=== PATIENT | male | born 1960 | race Caucasian/White ===

== ENCOUNTER 2018-08-06 18:11 | Inpatient (IN) | payer OTHER ==
[~2018-08-06] VITALS: Ht 182.9 cm; Wt 106.6 kg
--- NOTE | ~2018-08-06 | CON ---
[address] [address] CONSULTATION Name: JUAN JOSETRISTAN BOURNE Room: [address] IN M.R.#: [id number] Admission: 08/06/18 Attend Phys: Mali Nolan Discharge: Date of : 64 Report #: [id number] THIS REPORT FOR: //name// CC: Tarah Murillo DATE OF SERVICE: 08/09/2018 INFECTIOUS DISEASE CONSULTATION ATTENDING PHYSICIAN: Jeanie Cisse M.D. REASON FOR EVALUATION: Febrile illness, suspected pyelonephritis. HISTORY OF PRESENT ILLNESS: Chart reviewed, the patient examined. This is a 58-year-old gentleman without significant medical history, who presented to the Emergency Room with complaints of fevers which have been high grade. He had been ill over the course of the last 10-14 days and noted some dark cloudy urine, although absence of abdominal or side pain. He did experience what appeared to be cyclical chills, fevers and sweats. On evaluation, he was found to be leukocytotic. There was moderate pyuria. Urine cultures are in progress, nothing grown thus far. He did take one single dose of ciprofloxacin. Imaging raised a question of possible recently passed left-sided kidney stone with some perinephric stranding. Chest x-ray was otherwise unremarkable. He generally has improved. Empirically placed on ceftriaxone. On questioning, he denies any particular exposure history. 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 He has not had any recent travel. He had been to [place] a year ago. He does have several animals, [place] He is not aware of any arthropod exposure and does eat sushi. Generally, at this point, he feels better. ALLERGIES: None known. MEDICATIONS: Current medicines include enoxaparin, ceftriaxone, fentanyl as needed, acetaminophen and ondansetron. PAST MEDICAL HISTORY: History of tonsillectomy and adenoidectomy. SOCIAL HISTORY: Nonsmoker. No ethanol or illicit drug use. FAMILY HISTORY: Noncontributory. REVIEW OF SYSTEMS: He denies any significant pulmonary complaints. No head and neck issues. He has had recent dental work, although no dental pain. No sinus congestion. No headache or meningismus. [place] [address] CONSULTATION Name: TRISTAN INGRAM Room: [address]#: [id number] Admission: 08/06/18 Attend Phys: Mali Nolan Discharge: Date of : 64 Report #: [id number] PHYSICAL EXAMINATION: GENERAL: He is alert, cooperative and appropriate. He is not encephalopathic. He is in mild distress. VITAL SIGNS: Temperature 98.4 with a T-max overnight of 100.7, pulse 71, respirations 18 and blood pressure 151/100. SKIN: Warm, dry. No rashes. HEENT: Normocephalic. Extraocular muscles intact. No evidence of significant dental inflammation or lesions. NECK: Supple. LUNGS: Generally clear to auscultation. HEART: Regular. I do not appreciate a murmur. ABDOMEN: Soft, mildly distended. There are no peritoneal signs. Really, no tenderness. GENITOURINARY: Deferred. RECTAL: Deferred. LABORATORY DATA: Electrolytes: Sodium 142, potassium 3.6, chloride 107, bicarb 25, anion gap of 10, BUN and creatinine 13 and 1.0 and glucose of 112. AST of 60, ALT of 146. Albumin of 2.6. CBC: White count of 5.8, H and H 12.4 and 36.8 and platelets of 308,000. Acute hepatitis panel was negative. Urine culture negative thus far. Sed rate of 88. CPK 44. PSA of 3.8. Blood cultures sterile thus far. Uric acid 4.2. Influenza antigen was negative. CT abdomen and pelvis as described above, stranding around the left kidney, mild dilatation of the pelvis and collecting system. Urinalysis, 6-15 white cells and 10-30 bacteria. Lactic acid initially was 0.8. Chest x-ray, no acute process. ASSESSMENT AND PLAN: Febrile illness with possible history of pyelonephritis, although he has been asymptomatic. Clinically, he has improved over the course of the hospitalization. Noted plans for abdominal ultrasound and I think it is reasonable. He does have mildly elevated hepatic transaminases. As far as exposure history, certainly, he could have had environmental exposures. If he would worsen, we would likely add doxycycline to exclude atypical process, including a vector borne. We will await culture results. Continue the ceftriaxone for now. I did discuss in detail with his family. By: [id number] Verduzco MD /nt
[2018-08-06 18:25] VITALS: BP 147/81
[2018-08-06 19:10] LABS: HEMATOCRIT 39.8 % (42.0-52.0); HEMOGLOBIN 13.8 gm/dL (14.0-18.0); MCH 29.6 pg (26.0-34.0); MCHC 34.8 g/dL (28.0-37.0); MCV 85.2 fL (80.0-100.0); NUCLEATED RBCS 0 /100WBC; PLATELET COUNT* 293 thou/uL (150-400); RBC 4.67 mil/uL (4.50-6.00); RDW-CV 12.7 % (10.5-14.5); WBC 13.7 thou/uL (4.0-11.0)
[2018-08-06 19:18] LABS: ALBUMIN 3.1 g/dL (3.4-5.0); CALCIUM 8.5 mg/dL (8.5-10.1); CREATININE 1.4 mg/dL (0.6-1.3); POTASSIUM 3.6 mmol/L (3.5-5.1); TOTAL BILIRUBIN 1.2 mg/dL (<0.1-1.0); TOTAL PROTEIN 7.8 g/dL (6.4-8.2)
[2018-08-06 19:32] LABS: ABSOLUTE NEUTROPHILS 11.8 thou/uL (1.6-8.1); PLATELET ESTIMATE ADEQUATE
[2018-08-06 21:02] LABS: URINE BILIRUBIN NEGATIVE (Negative); URINE BLOOD 2+ (Negative); URINE CLARITY CLEAR; URINE COLOR YELLOW; URINE GLUCOSE-RANDOM NEGATIVE (Negative); URINE KETONES TRACE (Negative); URINE NITRITE-REFLEX NEGATIVE (Negative); URINE PROTEIN NEGATIVE (Negative); URINE SPECIFIC GRAVITY <= 1.005 (1.005-1.030); URINE UROBILINOGEN 0.2 E.U./dl (0.2-1.0)
[2018-08-06 21:06] LABS: URINE LEUKOCYTES-REFLEX 3+ (Negative)
[2018-08-06 21:08] LABS: CASTS None Seen /LPF (None Seen); CRYSTALS None Seen /LPF (None Seen); SQUAMOUS 0-3 Few /LPF (0-3); URINE RBC 0-2 Rare /HPF (0-2); URINE WBC-REFLEX 6-15 Few /HPF (0-5)
--- NOTE | 2018-08-06 21:47 | NUR ---
DR LITTLE RETURNED PAGE REGARDING PATIENT INFORMATION PROVIDED
[2018-08-06 23:28] VITALS: BP 124/81
[2018-08-07 03:16] VITALS: BP 127/79
[2018-08-07 06:20] VITALS: BP 140/83
[2018-08-07 08:14] LABS: INFLUENZA A ANTIGEN None Detected (None Detect); INFLUENZA B ANTIGEN None Detected (None Detect)
[2018-08-07 09:23] VITALS: BP 151/78
[2018-08-07 09:39] VITALS: BP 123/84
--- NOTE | 2018-08-07 10:12 | NUR ---
PATIENT CAME TO THE FLOOR FROM THE ER IN STABLE CONDITION VIA BED. NO FEVER AT THIS TIME, PATIENT IS FEELING BETTER. ROOM ORIENTATION AND ADMISSION ASSESSMENT DONE. QUESTIONS ANSERED FOR PATITENT AND FAMILY. CALL LIGHT IS IN REACH WILL CONTINUE TO MONITOR.
[2018-08-07 17:05] VITALS: BP 148/85
--- NOTE | 2018-08-07 17:05 | NUR ---
PATIENT IS ALERT AND ORIENTED TODAY. NO COMPLAINTS OF ANY KIND AT THIS TIME. PATIENT IS ABLE TO ICE CHIPS PER SURGERY BUT OTHERWISE NOTNING BY MOUTH DUE TO BOWEL OBSTRUCTION. NO NUASEA, VOMITING OR PAIN. VITAL SIGNS ARE STABLE ON ROOM AIR. PICC LINE PLACED TODAY AND WORKS WELL, WILL BE GETTING TPN. PATIENT IS UP AD GRACIE IN ROOM, CALLS FOR HELP IF NEEDED. CALL LIGHT IS IN REACH, WILL CONTINUE TO MONITOR.
--- NOTE | 2018-08-07 17:12 | NUR ---
PATIENT IS ALERT AND ORIENTED TODAY, VERY PLEASANT. UP AD GRACIE IN ROOM. NO COMPLAINTS OF PAIN TODAY, TEMPATURE MIS THIS AFTERNOON, TYLENOL GIVEN WAITING TO RECHECK TEMPATURE. REGULAR DIET AND TOLERATING WELL. CALL LIGHT IS IN REACH, WILL CONTINUE TO MONITOR.
[2018-08-07 23:19] VITALS: BP 150/98
--- NOTE | 2018-08-08 04:02 | NUR ---
ASSUMED CARE FROM PREVIOUS SHIFT RESTED IN BED MOST OF SHIFT WITH AT BEDSIDE, TYLENOL GIVEN PO FOR C/O HEADACHE, VOIDING CLEAR YELLOW URINE. RESTED WELL THROUHGOUT HOURLY ROUNDS NO CHANGE IN ASSESSMENT NOTED.
[2018-08-08 04:16] LABS: HEMATOCRIT 34.5 % (42.0-52.0); HEMOGLOBIN 12.1 gm/dL (14.0-18.0); MCH 30.1 pg (26.0-34.0); MCV 85.8 fL (80.0-100.0); MPV 7.5 fl. (7.2-11.1); RBC 4.02 mil/uL (4.50-6.00); RDW-CV 12.7 % (10.5-14.5); WBC 7.5 thou/uL (4.0-11.0)
[2018-08-08 04:28] LABS: CHOLESTEROL 140 mg/dL (<200); HDL CHOLESTEROL 25 mg/dL (>40); LDL CHOLESTEROL 99 mg/dL (<100); TC:HDL 5.6 Ratio (Not establshd); TRIGLYCERIDE 83 mg/dL (<150); URIC ACID* 4.2 mg/dL (2.6-7.2); VLDL 17 mg/dL (<40)
[2018-08-08 04:42] LABS: ALBUMIN 2.5 g/dL (3.4-5.0); POTASSIUM 3.5 mmol/L (3.5-5.1); TOTAL BILIRUBIN 0.5 mg/dL (<0.1-1.0); TOTAL PROTEIN 6.6 g/dL (6.4-8.2)
[2018-08-08 04:53] LABS: SERUM ASSESSMENT CLEAR
[2018-08-08 08:45] VITALS: BP 146/94
--- NOTE | 2018-08-08 13:19 | NUR ---
PATIENT IS ALERT AND ORIENTED TODAY, VITAL SIGNS STABLE ON ROOM AIR. NO COMPLAINTS OF ANY KIND PATIENT SAYS "I AM MUCH BETTER" APPETITE IS GOOD. NO FEVER TODAY. UP AD GRACIE IN ROOM. CALL LIGHT IS IN REACH, WILL CONTINUE TO MONITOR.
--- NOTE | 2018-08-08 14:30 | NUR ---
ASSUMED CARE OF PT FOR THIS SHIFT. AGREE WITH PREVIOUS DOCUMENTATION. WILL CONTINUE TO MONITOR.
[2018-08-08 15:46] VITALS: BP 140/83
[2018-08-08 20:20] VITALS: BP 151/100
[2018-08-09 02:10] LABS: HEPATITIS B SURFACE AG Negative (Negative)
--- NOTE | 2018-08-09 05:59 | NUR ---
PT A&O X 4. HIGHEST RECORDED TEMPERATURE THIS SHIFT WAS 100.7. TYLENOL GIVEN FOR PAIN AND TEMP AT PT REQUEST. NO NAUSEA OR VOMITING. NPO AT MIDNIGHT FOR PROCEDURE TODAY. WILL CONTINUE TO MONITOR.
[2018-08-09 08:20] VITALS: BP 147/104
[2018-08-09 09:38] LABS: ABSOLUTE EOSINOPHILS 0.1 thou/uL (0.0-0.7); ABSOLUTE LYMPHOCYTES 1.2 thou/uL (0.8-5.3); ABSOLUTE MONOCYTES 0.5 thou/uL (0.0-1.2); ABSOLUTE NEUTROPHILS 3.9 thou/uL (1.6-8.1); BASOPHILS 0.6 %; EOSINOPHILS 1.4 %; HEMATOCRIT 36.8 % (42.0-52.0); HEMOGLOBIN 12.4 gm/dL (14.0-18.0); LYMPHOCYTES 21.4 %; MCH 29.6 pg (26.0-34.0); MCHC 33.8 g/dL (28.0-37.0); MCV 87.4 fL (80.0-100.0); MONOCYTES 8.8 %; MPV 7.9 fl. (7.2-11.1); NUCLEATED RBCS 0 /100WBC; PLATELET COUNT* 308 thou/uL (150-400); POLYS 67.8 %; RBC 4.21 mil/uL (4.50-6.00); RDW-CV 12.4 % (10.5-14.5); WBC 5.8 thou/uL (4.0-11.0)
[2018-08-09 09:50] LABS: ALBUMIN 2.6 g/dL (3.4-5.0); POTASSIUM 3.6 mmol/L (3.5-5.1); TOTAL BILIRUBIN 0.3 mg/dL (<0.1-1.0); TOTAL PROTEIN 6.2 g/dL (6.4-8.2)
[2018-08-09 12:03] LABS: URINE BILIRUBIN NEGATIVE (Negative); URINE BLOOD TRACE (Negative); URINE CLARITY CLEAR; URINE COLOR YELLOW; URINE GLUCOSE-RANDOM NEGATIVE (Negative); URINE KETONES TRACE (Negative); URINE LEUKOCYTES NEGATIVE (Negative); URINE NITRITE NEGATIVE (Negative); URINE PROTEIN NEGATIVE (Negative)
--- NOTE | 2018-08-09 14:30 | NUR ---
PT.ALERT AND ORIENTED. STATED HE LIVES WITH S.O.IN A HOUSE. 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 NO DME OR HH HX. HE DOES NOT FEEL HE WILL HAVE ANY DISCHARGE NEEDS. CM TO BE AVAILABLE.
[2018-08-09 16:00] VITALS: BP 147/101
--- NOTE | 2018-08-09 16:57 | NUR ---
PT REMAINED ALERT AND ORIENTED. PT DENIED ANY PAIN OR N/V. AFEBRILE THIS SHIFT. POSSIBLE DC TOMORROW. VESICLES NOTED ON ANUS. DOCTOR NOTIFIED AND SAW VESICLES. WILL MONITOR. FALL RISK PRECAUTIONS IN PLACE. HOURLY ROUNDING COMPLETED. WILL CONTINUE TO MONITOR.
[2018-08-09 20:45] VITALS: BP 163/101
[2018-08-10 04:23] LABS: HEMATOCRIT 36.2 % (42.0-52.0); HEMOGLOBIN 12.4 gm/dL (14.0-18.0); MCH 29.6 pg (26.0-34.0); MCHC 34.1 g/dL (28.0-37.0); MCV 86.8 fL (80.0-100.0); MPV 7.1 fl. (7.2-11.1); RBC 4.17 mil/uL (4.50-6.00); RDW-CV 12.4 % (10.5-14.5); WBC 6.8 thou/uL (4.0-11.0)
[2018-08-10 04:58] LABS: ALBUMIN 2.6 g/dL (3.4-5.0); CALCIUM 8.5 mg/dL (8.5-10.1); POTASSIUM 3.5 mmol/L (3.5-5.1); TOTAL BILIRUBIN 0.3 mg/dL (<0.1-1.0); TOTAL PROTEIN 6.9 g/dL (6.4-8.2)
--- NOTE | 2018-08-10 05:37 | NUR ---
PT REMAINED ALERT AND ORIENTED. VITALS, SpO2 STABLE RA. AFIBRILE. NO PAIN, NAUSEA OR VOMITING THIS SHIFT. MEDS, FLUID GIVEN ORDERED. WILL CONTINUE TO MONITOR.
[2018-08-10 06:05] VITALS: BP 153/93
[2018-08-10 07:40] VITALS: BP 148/96
[2018-08-10 09:35] VITALS: BP 148/96
[2018-08-10] MEDS ORDERED: CEFDINIR300 MG PO (09:35)
[2018-08-10 11:08] VITALS: BP 148/96
--- NOTE | 2018-08-10 11:08 | NUR ---
PT GIVEN DISCHARGE INFORMATION, CARE NOTES, AND PRESCRIPTIONS. IV REMOVED. PT BELONINGS GATHERED. PT DENIED ANY FURHTER QUESTIONS OR CONCERNS. FALL RISK PRECAUTIONS IN PLACE. HOURLY ROUNDING COMPLETED. PT LEFT AMBULATORY WITH NURSING STAFF AND SPOUSE TO CARE TO HOME.
[2018-08-10 14:08] LABS: IgA 230 mg/dL (90-386); IgG 1000 mg/dL (700-1600); IgM 39 mg/dL (20-172)
[2018-08-12 18:08] LABS: GLOBULIN TOTAL 3.1 g/dL (2.2-3.9); M-SPIKE Not Observed g/dL (Not Observed)
== END 2018-08-10 11:09 | disposition home or self-care (01) | DRG 871 ==
LOC: M.ERS 18:11 → M.TBA-ER 21:04 → M.ORTHSURG 21:04
PROVIDERS: Internal Medicine; Physician Assistant; ADMIT Internal Medicine
DX: A41.9 Sepsis, unspecified organism (principal); N17.0 Acute kidney failure with tubular necrosis; B17.9 Acute viral hepatitis, unspecified; N10 Acute pyelonephritis; K62.9 Disease of anus and rectum, unspecified; I10 Essential (primary) hypertension; D64.9 Anemia, unspecified; E88.09 Other disorders of plasma-protein metabolism, not elsewhere classified; K76.0 Fatty (change of) liver, not elsewhere classified; Z79.2 Long term (current) use of antibiotics; Z79.899 Other long term (current) drug therapy; Z82.49 Family history of ischemic heart disease and other diseases of the circulatory system; Z83.3 Family history of diabetes mellitus

== ENCOUNTER 2020-07-09 10:44 | Inpatient (IN) | payer OTHER ==
[2020-07-09] VITALS (16 sets, daily range): BP systolic 112–197; BP diastolic 54–107
[~2020-07-09] VITALS: Ht 182.9 cm; Wt 107.4 kg
[~2020-07-09 10:44] MED LIST: CEFDINIR300 MG PO
[2020-07-09 11:06] LABS: ABSOLUTE EOSINOPHILS 0.2 thou/uL (0.0-0.7); ABSOLUTE LYMPHOCYTES 1.5 thou/uL (0.8-5.3); ABSOLUTE MONOCYTES 0.4 thou/uL (0.0-1.2); ABSOLUTE NEUTROPHILS 3.8 thou/uL (1.6-8.1); BASOPHILS 0.8 %; EOSINOPHILS 3.2 %; HEMATOCRIT 44.4 % (42.0-52.0); LYMPHOCYTES 25.2 %; MCH 30.2 pg (26.0-34.0); MCHC 33.7 g/dL (28.0-37.0); MCV 89.8 fL (80.0-100.0); MPV 7.5 fl. (7.2-11.1); NUCLEATED RBCS 0 /100WBC; PLATELET COUNT* 241 thou/uL (150-400); POLYS 63.8 %; RBC 4.95 mil/uL (4.50-6.00); RDW-CV 13.2 % (10.5-14.5)
[2020-07-09 11:16] LABS: CALCIUM 9.1 mg/dL (8.5-10.1); CREATININE 1.3 mg/dL (0.6-1.3)
[2020-07-09 11:26] LABS: INR 0.9
[2020-07-09 11:30] LABS: ALBUMIN 4.1 g/dL (3.4-5.0); CK-MB MASS 0.9 ng/mL (<0.5-3.6); MAGNESIUM 2.3 mg/dL (1.8-2.4); TOTAL BILIRUBIN 0.3 mg/dL (<0.1-1.0); TOTAL PROTEIN 8.5 g/dL (6.4-8.2)
--- NOTE | 2020-07-09 15:11 | EKG ---
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
[2020-07-10 00:50] VITALS: BP 84/49
[2020-07-10 01:39] VITALS: BP 89/55
[2020-07-10 03:58] LABS: HEMOGLOBIN 13.2 gm/dL (14.0-18.0); MCH 30.1 pg (26.0-34.0); MCHC 33.9 g/dL (28.0-37.0); MCV 88.6 fL (80.0-100.0); MPV 7.4 fl. (7.2-11.1); RBC 4.4 mil/uL (4.50-6.00); RDW-CV 13.3 % (10.5-14.5); WBC 6.7 thou/uL (4.0-11.0)
[2020-07-10 04:17] LABS: ALBUMIN 3.3 g/dL (3.4-5.0); ALKALINE PHOSPHATASE 57 U/L (46-116); ANION GAP 10 mmol/L (7-16); BUN 22 mg/dL (7-18); CALCIUM 8.6 mg/dL (8.5-10.1); CHLORIDE 107 mmol/L (98-107); CHOLESTEROL 171 mg/dL (<200); CO2 26 mmol/L (21-32); CREATININE 1.3 mg/dL (0.6-1.3); GLUCOSE 103 mg/dL (70-99); HDL CHOLESTEROL 37 mg/dL (>40); LDL CHOLESTEROL 119 mg/dL (<100); MAGNESIUM 2.1 mg/dL (1.8-2.4); POTASSIUM 4.1 mmol/L (3.5-5.1); SGOT 14 U/L (15-37); SGPT 22 U/L (30-65); SODIUM 143 mmol/L (136-145); TC:HDL 4.6 Ratio (Not establshd); TOTAL BILIRUBIN 0.7 mg/dL (<0.1-1.0); TOTAL PROTEIN 6.7 g/dL (6.4-8.2); TRIGLYCERIDE 75 mg/dL (<150); VLDL 15 mg/dL (<40)
[2020-07-10 04:18] LABS: SERUM ASSESSMENT Clear
[2020-07-10 04:25] LABS: TROPONIN-I LEVEL 0.76 ng/mL (<0.06)
[2020-07-10 05:07] VITALS: BP 91/56
[2020-07-10 08:00] VITALS: BP 107/69
[2020-07-10] MEDS ORDERED: CARVEDILOL3.125 MG PO (09:36)
[2020-07-10] MEDS ORDERED: BAYER CHEWABLE81 MG PO (09:36)
[2020-07-10] MEDS ORDERED: EFFIENT10 MG PO (09:36)
[2020-07-10] MEDS ORDERED: QUINU5 PD PO (09:36)
[2020-07-10] MEDS ORDERED: LIPITOR 40 MG T40 M1 PO (09:36)
[2020-07-10 10:46] VITALS: BP 107/69
--- NOTE | 2020-07-10 11:07 | CARD ---
[address] [address] CARDIAC CATH REPORT Name: TRISTAN INGRAM Room: [address] IN M.R.#: [id number] Admission: 07/09/20 Attend Phys: Tammie Delgado MD Discharge: 07/10/20 Date of : 64 Report #: [id number] THIS REPORT FOR: cc: Tarah Shetty Maggie M. DO ~ Helio Jones MD [facility] APPROVED REPORT Study performed: 07/09/2020 13:13:32 Patient Details Patient Status: ED Room #: The patient is a 60 year-old male Event Personnel Chandu Rabago RTR Monitor, Zuleyka Mcclelland RTR Scrub, Indu Lamar RN RN, Helio Jones Auger Operator Procedures Performed Left Heart Cath w/or w/o Coronaries [id number] [facility] w/wo Plasty Single CIRC [id number] Hemostasis with Hemoband Indication Non-STEMI , Dyspnea, Atypical chest pain Risk Factors Arterial Hypertension, Family History, Hypercholesterolemia Admission/Lab Medications/Medications given during procedure Glycoprotein IllbIlla Inhibitors, Heparin Unfract., Midazolam (Versed) IV 2 mg, Fentanyl IV 25 mcg, Lidocaine Subcut 5 ml, Nitroglycerin IA 200 mcg, Verapamil IV 2.5 mg, Heparin IV 5000 units, Aggrastat Unknown 10.2 ml, Midazolam (Versed) IV 1 mg, Effient PO 60 mg, Hydralazine (Apresoline) IV 10 mg Procedure Narrative The patient was brought urgently to the Cardiac Catheterization Laboratory and was prepped and draped in a sterile manner. The right wrist was infiltrated with 2% Lidocaine subcutaneous anesthesia. A Slender Glidesheath sheath was inserted into the right radial artery. Coronary angiography was performed using coronary diagnostic catheters. The right coronary system was accessed [place] [address] CARDIAC CATH REPORT Name: TRISTAN INGRAM Room: [address] IN .R.#: [id number] Admission: 07/09/20 Attend Phys: Tammie Delgado MD Discharge: 07/10/20 Date of : 64 Report #: [id number] a Diagnostic JR4 6Fr catheter. The left coronary system was accessed and visualized with a Diagnostic JL4 6Fr catheter. The left ventricle was accessed and visualized with a Diagnostic Pigtail 6Fr catheter. Left ventricular/Aortic Valve gradient assessed via catheter pullback. Left ventriculogram was performed in WISE projection. Closure device was deployed with a 6 Fr vascband. The patient tolerated the procedure well and there were no complications associated with the procedure. There was no hematoma. Intraoperative Conscious Sedation Sedation start time: 1347 Case end Time: 1430 Fentanyl 50 mcg Versed 3 mg Fluoro Time: 6.6 minutes Dose: DAP 95978 cGycm2 1529.85 mGy Contrast Type and Amount: Visipaque 200 ml Coronary Angiography The patient's coronary anatomy is right dominant. Diagnostic Cath Left Main 30% distal stenosis LAD chronically occluded proximally and filled distally by collaterals from the RCA Circumflex 0% stenosis OM3 large vessel with proximal 90% stenosis Right Coronary 50% proximal stenosis RPLV 60% proximal stenosis Ramus large vessel with 40% proximal stenosis Left Ventriculography The left ventricular ejection fraction is estimated to be 45-50%. Left ventricular wall motion abnormalities are present. There is no mitral insufficiency. mild hypokinesis noted of the distal anterior wall. Hemodynamics The aortic pressure is 120/80 mmHg with a mean of 99 mmHg. The left ventricular pressure is 160/10 mmHg with a mean of mmHg. The left ventricular end diastolic pressure is 14 mmHg. There was no gradient across the aortic valve upon pullback. Pullback from the left ventricle to the aorta revealed no gradient across [place] [address] CARDIAC CATH REPORT Name: TRISTAN INGRAM Room: [address] IN [facility]#: [id number] Admission: 07/09/20 Attend Phys: Tammie Delgado MD Discharge: 07/10/20 Date of : 64 Report #: [id number] PCI Technique Lesion Anticoagulation was achieved with Heparin. bolus of iv aggrastat given Percutaneous coronary intervention was performed on the third obtuse marginal branch segment. The lesion stenosis prior to intervention was 90% with CAMILLE 3 flow. A 6FR XB 3.5 100CM Guide Catheter was used to engage the Left ostium. A IG: BMW 190cm Interventional Guidewire was used to cross the lesion. BALLOON DILATION A Balloon catheter Euphora SC 2.5x10 was inserted and inflated up to 8.00atm for 13seconds. Repeat angiography revealed the following post-dilatation results: 40% stenosis. Additional Inflation: 16.00atm for 20seconds. STENT DEPLOYMENT A drug-eluting stent Bebeto RX Stent 2.92G22hd was inserted and inflated up to 10.00atm for 13seconds. Repeat angiography revealed the following post-stent deployment results: 0% stenosis. Additional Inflation: 11.00atm for 14seconds. Additional Inflation: 17.00atm for 9seconds. Final angiography reveals 0 % stenosis with CAMILLE 3 flow. Conclusion 1. chronic occlusion of the LAD that filled distally by retrograde collaterals from the RCA 2. 90% stenosis of the third marginal branch of the circumflex artery. 3. LVEF 45-50% 4. successful placement of a drug eluting stent in the marginal artery. Recommendations Cardiac Rehabilitation Referral Aggressive Medical Therapy Medications Administered Prasugrel <ELECTRONICALLY SIGNED> By: Helio Jones MD, FACC 07/10/20 1107 06 1107Dacheko Jones MD, FACC /INF
--- NOTE | 2020-07-11 11:18 | CON ---
[address] [address] CONSULTATION Name: TRISTAN INGRAM Room: [address] IN M.R.#: [id number] Admission: 07/09/20 Attend Phys: Tammie Delgado MD Discharge: 07/10/20 Date of : 64 Report #: [id number] THIS REPORT FOR: cc: Tarah Shetty Maggie M. DO ~ Helio Jones MD [facility] DATE OF SERVICE: 07/09/2020 CARDIOLOGY CONSULTATION HISTORY OF PRESENT ILLNESS: The patient is a 60-year-old white male who I was asked to see in the Emergency Room today after he complained of chest pain. The patient has no previous history of heart disease. However, the past several weeks, he has had intermittent sharp pain, left side of his chest. Occasionally goes into his right arm. He does get short of breath when he exerts himself. The pain is not related to food. He has had no trauma to his chest. Denied any rash. He has had no bleeding. Denied any fever or cough. He finally came to the hospital today. He was admitted for further evaluation and treatment. He denies any palpitations or syncope. PAST MEDICAL HISTORY: He has had previous surgery on his right arm following a fracture. He has been told his blood pressure was high in the past. Currently on no medications. ALLERGIES: He has no known drug allergies. FAMILY HISTORY: His father had bypass surgery. His mother had stents. SOCIAL HISTORY: He is , lives in [place], [place]. He works [employer]. No smoking. Drinks alcohol on weekends. No illicit drug use. REVIEW OF SYSTEMS: No history of stroke, asthma, liver disease, bleeding, kidney disease, cancer, psychiatric illness. Does wear glasses. PHYSICAL EXAMINATION: GENERAL: Revealed a large male, appeared in no distress. VITAL SIGNS: Blood pressure is 160/100, pulse 60. He is afebrile. HEENT: He was anicteric. Conjunctivae pink. Mucous membranes were moist. NECK: Veins nondistended. No carotid bruits. Neck supple. CHEST: Clear to auscultation. CARDIOVASCULAR: Regular rate and rhythm without murmurs. ABDOMEN: Soft. EXTREMITIES: Had no edema. Posterior tibial pulse 2+ bilaterally. SKIN: [place] [address] CONSULTATION Name: TRISTAN INGRAM Room: [address]#: [id number] Admission: 07/09/20 Attend Phys: Tammie Delgado MD Discharge: 07/10/20 Date of : 64 Report #: [id number] NEUROLOGIC: Nonfocal. RADIOLOGICAL DATA: ECG shows a sinus rhythm with no ST- or T-wave change noted. His workup in the Emergency Room, he had a portable chest x-ray that showed normal heart size, clear lung yeung. LABORATORY DATA: Sodium 140, potassium 4.0, creatinine 1.3. His troponin is 0.24. Previous LDL in 2019 was 99. His white blood cell count of 6.0, hemoglobin 15.0. IMPRESSION AND RECOMMENDATIONS: 1. Chest pain. Atypical for angina. Borderline troponin. Recommend cardiac catheterization. 2. Hypertension. Recommend treatment. <ELECTRONICALLY SIGNED> By: Helio Jones MD, FACC 07/11/20 1118 1207 1253David Constantino Jones MD, FACC /nt
--- NOTE | 2020-07-12 17:27 | EKG ---
[place] [address] ELECTROCARDIOGRAM REPORT Name: TRISTAN INGRAM Room: [address] IN M.R.#: [id number] Admission: 07/09/20 Attend Phys: Tammie Delgado, Discharge: 07/10/20 Date of : 64 Date of Service: 07/09/20 1600 Report #: [id number] THIS REPORT FOR: //name// 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 /EPI
== END 2020-07-10 11:05 | disposition home or self-care (01) | DRG 247 ==
LOC: M.ERS 10:44 → M.TBA-ER 11:48 → M.2W 15:37
PROVIDERS: Family Medicine; ADMIT Internal Medicine; ATTEND Internal Medicine
PROC: 027034Z Dilation of Coronary Artery, One Artery with Drug-eluting Intraluminal Device, Percutaneous Approach (ICD-10-PCS; principal; 2020-07-09)
PROC: 4A023N7 Measurement of Cardiac Sampling and Pressure, Left Heart, Percutaneous Approach (ICD-10-PCS; principal; 2020-07-09)
PROC: B215YZZ Fluoroscopy of Left Heart using Other Contrast (ICD-10-PCS; principal; 2020-07-09)
PROC: B211YZZ Fluoroscopy of Multiple Coronary Arteries using Other Contrast (ICD-10-PCS; principal; 2020-07-09)
DX: I21.4 Non-ST elevation (NSTEMI) myocardial infarction (principal); I10 Essential (primary) hypertension; E78.00 Pure hypercholesterolemia, unspecified; I20.8 Other forms of angina pectoris; Z82.49 Family history of ischemic heart disease and other diseases of the circulatory system; Z79.82 Long term (current) use of aspirin; Z79.899 Other long term (current) drug therapy; Z20.822 Contact with and (suspected) exposure to COVID-19

== ENCOUNTER 2021-04-13 09:39 | Observation (INO) | payer OTHER ==
[2021-04-13] VITALS (15 sets, daily range): BP systolic 137–170; BP diastolic 55–98
[~2021-04-13] VITALS: Ht 182.9 cm; Wt 107.0 kg
--- NOTE | ~2021-04-13 | H ---
[address] [address] HISTORY AND PHYSICAL Name: TRISTAN INGRAM Room: [address] Kelly Garcia#: [id number] Admission: 04/13/21 Attend Phys: Helio Jones MD, F Discharge: 04/14/21 Date of : 64 Report #: [id number] THIS REPORT FOR: cc: Tarah Shetty Maggie M. DO [facility],Medical Records Staff ~ Please refer to the History and Physical performed in the physician's office. By: 0649Medical Records Staff MARY /RONY
[~2021-04-13 09:39] MED LIST changes: +ACCUPRIL5 MG PO; +ASA81BEC PO; +BAYER CHEWABLE81 MG PO; +CARVEDILOL3.125 MG PO; +EFFIENT10 MG PO; +LIPITOR 20 MG T20 M1 PO; +LIPITOR 40 MG T40 M1 PO; +QUINU5 PD PO
[2021-04-13 10:22] LABS: HEMATOCRIT 40.7 % (42.0-52.0); HEMOGLOBIN 13.8 gm/dL (14.0-18.0); MCH 29.7 pg (26.0-34.0); MCHC 33.9 g/dL (28.0-37.0); MCV 87.5 fL (80.0-100.0); MPV 7.4 fl. (7.2-11.1); RBC 4.65 mil/uL (4.50-6.00); WBC 5.5 thou/uL (4.0-11.0)
--- NOTE | 2021-04-13 10:30 | EKG ---
[place] [address] ELECTROCARDIOGRAM REPORT Name: TRISTAN INGRAM Room: [facility]#: [id number] Admission: 04/13/21 Attend Phys: Helio Jones MD Discharge: Date of : 64 Date of Service: 04/13/21 1023 Report #: [id number] THIS REPORT FOR: //name// [facility] Test Date: 2021-04-13 Test Time: 10:23:50 Pat Name: TRISTAN INGRAM Department: Room: Gender: Chief Learning Officer: : 1960 Requested By: Helio Jones Order Number: [id number] Reading MD: Helio Jones Measurements Intervals [place] Rate: 52 P: 48 [place]: 146 QRS: 14 QRSD: 114 T: 31 QT: 467 QTc: 435 Interpretive Statements Sinus bradycardia Borderline intraventricular conduction delay Compared to ECG 07/09/2020 16:00:40 No significant changes Electronically Signed On 04-13-2021 10:30:13 ROOFING TILE SORTER by Helio Jones [email or web address] <ELECTRONICALLY SIGNED> By: Helio Jones MD, [facility] 04/13/21 1030 1023 1023 Helio Jones MD, [facility] /EPI
[2021-04-13 11:07] LABS: APTT 30.5 Seconds (25.0-31.3); PROTIME 10.4 Seconds (9.20-11.50)
[2021-04-13 11:35] LABS: ANION GAP 9 mmol/L (7-16); BUN 19 mg/dL (7-18); CALCIUM 8.6 mg/dL (8.5-10.1); CHLORIDE 107 mmol/L (98-107); CO2 26 mmol/L (21-32); CREATININE 1.1 mg/dL (0.6-1.3); GLUCOSE 113 mg/dL (70-99); POTASSIUM 4.2 mmol/L (3.5-5.1); SODIUM 142 mmol/L (136-145)
[2021-04-13 11:39] LABS: ALBUMIN 3.9 g/dL (3.4-5.0); ALKALINE PHOSPHATASE 65 U/L (46-116); SGOT 15 U/L (15-37); SGPT 25 U/L (30-65); TOTAL BILIRUBIN 0.6 mg/dL (<0.1-1.0); TOTAL PROTEIN 7.4 g/dL (6.4-8.2)
[2021-04-13 16:42] LABS: CHOLESTEROL 131 mg/dL (<200); HDL CHOLESTEROL 48 mg/dL (>40); LDL CHOLESTEROL 74 mg/dL (<100); TC:HDL 2.7 Ratio (Not establshd); TRIGLYCERIDE 46 mg/dL (<150); VLDL 9 mg/dL (<40)
[2021-04-13 16:50] LABS: SERUM ASSESSMENT Clear
--- NOTE | 2021-04-13 17:14 | EKG ---
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: : 1960 Requested By: Helio Jones Order Number: [id number] Иван MD: Helio Jones Measurements Intervals [place] Rate: 51 P: 34 [place]: 146 QRS: 16 QRSD: 117 T: 35 QT: 468 QTc: 432 Interpretive Statements Sinus bradycardia Nonspecific intraventricular conduction delay Compared to ECG 04/13/2021 10:23:50 no change Electronically Signed On 04-13-2021 17:14:13 GOLF BALL TRIMMER by Helio Jones [email or web address] <ELECTRONICALLY SIGNED> By: Helio Jones MD, [facility] 04/13/21 1714 1551 1551 Helio Jones MD, [facility] /EPI
[2021-04-13] MEDS ORDERED: NITROGLYCERIN0.3 M1 SUBLING (18:06)
--- NOTE | 2021-04-13 19:04 | NUR ---
PT ADMITTED TO ROOM 211 VIA BED FROM RN TELEPHONIC AT APPROXIMATELY 1800. ADMISSION ASSESSMENT AND HISTORY CHARTED. HOME MEDICATIONS RECONCILED. PT ORIENTED TO ROOM AND CALL LIGHT. PT AT BEDSIDE AND UPDATED ON CURRENT PLAN OF CARE. POST CARDIAC CATH ASSESSMENT AND VITALS CHARTED. MEDS PER MAR. CALL LIGHT WITHIN REACH. WILL CONTINUE PLAN OF CARE.
[2021-04-14 05:37] VITALS: BP 130/82
[2021-04-14 06:00] LABS: HEMATOCRIT 38.6 % (42.0-52.0); HEMOGLOBIN 13.1 gm/dL (14.0-18.0); MCH 29.8 pg (26.0-34.0); MCV 87.9 fL (80.0-100.0); MPV 7.6 fl. (7.2-11.1); RBC 4.39 mil/uL (4.50-6.00); WBC 6.9 thou/uL (4.0-11.0)
[2021-04-14 06:33] LABS: CALCIUM 8.1 mg/dL (8.5-10.1); POTASSIUM 3.8 mmol/L (3.5-5.1)
[2021-04-14 08:13] VITALS: BP 150/92
--- NOTE | 2021-04-14 10:36 | CARD ---
[address] [address] CARDIAC CATH REPORT Name: TRISTAN INGRAM Room: [address] Kelly M.R.#: [id number] Admission: 04/13/21 Attend Phys: Helio Jones MD, F Discharge: Date of : 64 Report #: [id number] THIS REPORT FOR: cc: Tarah Shetty Maggie M. DO Blick, David R. MD [facility] ~ APPROVED REPORT Study performed: 04/13/2021 10:20:03 Patient Details Patient Status: Out-Patient Room #: The patient is a 61 year-old male Event Personnel Helio Jones Continuous Loft Operator, Indu Lamar RN RN, Chandu Rabago RTR Scrub, Margi Chandra RTR Monitor Procedures Performed Art Access - R femoral artery Left Heart Cath w/or w/o Coronaries BECKI Revasc Chronic Ttl Occl Single LAD Hemostasis w/ Angioseal Indication Chest pain Risk Factors Arterial Hypertension, Hypercholesterolemia, Coronary Artery Disease Previous Procedures/Diagnoses Previous PCI, Previous IA Admission/Lab Medications/Medications given during procedure Platelet Aff. Inhib., Heparin Unfract., Oxygen Nasal cannula 2 l per min, 0.9% Sodium Chloride IV 75 ml per hr, Lidocaine Subcut 5 ml, Lidocaine Subcut 10 ml, Heparin IV 8000 units, Heparin IV 2000 units, Protamine IV 60 mg Procedure Narrative The patient was brought electively to the Cardiac Catheterization Laboratory and was prepped and draped in a sterile manner. The right femoral was infiltrated with 2% Lidocaine subcutaneous anesthesia. IV conscious sedation was used throughout [place] [address] CARDIAC CATH REPORT Name: TRISTAN INGRAM Room: [address] Jose#: [id number] Admission: 04/13/21 Attend Phys: Helio Jones MD, F Discharge: Date of : 64 Report #: [id number] monitoring and was performed in the presence of a registered nurse who was an independent trained observer other than the physician performing the procedure. A [place] 6 FR sheath was inserted into the right femoral artery. Coronary angiography was performed using coronary diagnostic catheters. The right coronary system was accessed and visualized with a Diagnostic catheter. The left coronary system was accessed and visualized with a Diagnostic catheter. Closure device was deployed with a 6 Fr Angioseal STS 6Fr. There was no hematoma. Attempted procedure from the right radial artery. Arterial blood was obtained with the percutaneious needle, however, I was unable to advance wire into the radial artery. It was therefore decided to proceed from the right femoral artery. Intraoperative Conscious Sedation Sedation start time: 11:33 Case end Time: 13:15 Fentanyl 50 mcg Versed 2 mg Fluoro Time: 18.9 minutes Dose: DAP [id number] cGycm2 5272 mGy Contrast Type and Amount: Visipaque 340 mL PCI Technique Lesion Anticoagulation was achieved with Heparin. Patient was preloaded with Effient. Percutaneous coronary intervention was performed on the distal left anterior descending artery segment. The lesion stenosis prior to intervention was 100% with CAMILLE 0 flow. A 6F XB LAD 4.0 Guide Catheter was used to engage the left ostium. A Choice PT Wire 182cm Interventional Guidewire was used to cross the lesion. BALLOON DILATION A Balloon catheter Trek RX 2.5 X 12 was inserted and inflated up to 6.00atm for 34seconds. Repeat angiography revealed the following post-dilatation results: 100% occluded. Additional Inflation: 6.00atm for 270seconds. Additional Inflation: 8.00atm for 240seconds. BMW wire was unalbe to be advanced across the chronic total occlusion. Arteriogram revealed reperfusion of the chronically occluded LAD, but there was flow noted from the distal LAD outside of the artery suggesting a coronary dissection. However, the blood did not seem to enter the pericardium, suggesting instead that the perforation was into the left ventricle. I attempted to advance a coated Biotronic stent to the area of dissection into the distal LAD, but was unable to advance the stent to the area of dissection secondary to diffuse disease in the chronically occluded LAD. I was able to advance a 2.5 x 12 mm PTCA balloon which stopped the flow [place] [address] CARDIAC CATH REPORT Name: TRISTAN INGRAM Room: [address] Kelly MKaiser#: [id number] Admission: 04/13/21 Attend Phys: Helio Jones MD, F Discharge: Date of : 64 Report #: [id number] the balloon was inflated. I then placed 2 2.0 x 12 mm drug eluting stents to the area of dissection, and the patient was give IV protamine to reverse the heparin. After placemnt of 2 drug eluting stents, the flow into the dissection was markedly reduced. In addition, the patient denied chest pain and there was no drop in blook pressure. Stat echo shoed no pericardial effusion. It was deceded to abandon further efforts. STENT DEPLOYMENT A drug-eluting stent Bebeto RX Stent 2.0X12mm was inserted and inflated up to 12.00atm for 36seconds. Repeat angiography revealed the following post-stent deployment results: 100% occlusion. A drug-eluting stent Bebeto RX Stent 2.0 x 12 was inserted and inflated up to 12 PUJA for 83 seconds. POST STENT DEPLOYMENT BALLOON DILATION A Balloon catheter Trek RX 2.5 X 12 was inserted and inflated up to 6.00atm for 95seconds. Additional Inflation: 6.00atm for 100seconds. Final angiography reveals 100 % stenosis with CAMILLE 0 flow. PCI Technique Lesion 2 Percutaneous Coronary Intervention was performed on the mid left anterior descending artery segment. Patient was preloaded with Heparin IV 8000 units. A 6F XB LAD 4.0 Guide Catheter was used to engage the left ostium. A Choice PT Wire 182cm Interventional Guidewire was used to cross the lesion. Balloon Dilation A Balloon catheter Trek RX 2.5 X 12 was inserted and inflated up to 8atm for 10seconds. Additional Inflation: 10atm for 10seconds. Additional Inflation: 14atm for 9seconds. Conclusion 1. Chronic occlusion of the mid LAD 2. patent stent in the circumflex artery. 3. Attempted PTCA of the chronic occlusion resulted in a small perforation in the distal LAD, and the blood appearred to enter the left ventricle chamber. 4. The perforation was treated with placement of 2 drug eluting stents in the distal LAD, and reversing the heparin with protamine. [address] [place] [address] CARDIAC CATH REPORT Name: TRISTAN INGRAM Room: [facility] Kelly M.R.#: [id number] Admission: 04/13/21 Attend Phys: Helio Jones MD, F Discharge: Date of : 64 Report #: [id number] Recommendations Aggressive Medical Therapy <ELECTRONICALLY SIGNED> By: Helio Jones MD, FACC 04/14/21 1036 1036 [id number] Jones MD, FACC /INF
[2021-04-14 12:00] VITALS: BP 138/89
--- NOTE | 2021-04-14 12:05 | 2DMMODE ---
[place] [address] 2 D/M-MODE ECHOCARDIOGRAM Name: TRISTAN INGRAM Room: [address] Kelly M.R.#: [id number] Admission: 04/13/21 Attend Phys: Helio Jones MD Discharge: Date of : 64 Date of Service: 04/14/21 1205 Report #: [id number] THIS REPORT FOR: cc: Tarah Shetty Maggie M. DO Liston, Michael J. MD [facility] ~ APPROVED REPORT Study performed: 04/14/2021 11:39:56 EXAM: Limited 2D, Doppler, and color-flow Echocardiogram Patient Location: In-Patient Room #: [facility] Status: routine BSA: 2.24 HR: 59 bpm BP: 150/92 mmHg Rhythm: NSR Other Information Study Quality: Good Indications CAD Volumes Left Atrial Volume (Systole) LA ESV Index: 26.70 mL/m2 Tricuspid Valve RAP Estimate: 5.00 mmHg TR Peak Gr.: 23.19 mmHg RVSP: 28.00 mmHg PA Pressure: 28.00 mmHg Left Ventricle The left ventricle is normal size. There is normal LV segmental wall motion. There is normal left ventricular wall thickness. The left ventricular systolic function is normal. LVEF is 55-60%. Right Ventricle Right ventricle is dilated. The right ventricular systolic function is normal. Atria Left atrium is mildly dilated. Right atrium is mildly [address] [place] [address] 2 D/M-MODE ECHOCARDIOGRAM Name: TRISTAN INGRAM Room: [address] M.R.#: [id number] Admission: 04/13/21 Attend Phys: Helio Jones MD Discharge: Date of : 64 Date of Service: 04/14/21 1205 Report #: [id number] dilated. Aortic Valve The aortic valve is normal in structure. Trace aortic regurgitation. Mitral Valve The mitral valve is normal in structure. Trace mitral regurgitation. Tricuspid Valve The tricuspid valve is normal in structure. Mild tricuspid regurgitation. No pulmonary hypertension. Pulmonic Valve The pulmonary valve is normal in structure. Mild pulmonic regurgitation. Great Vessels The aortic root is normal in size. IVC is normal in size and collapses >50% with inspiration. Pericardium There is no pericardial effusion. <Conclusion> The left ventricle is normal size. There is normal left ventricular wall thickness. The left ventricular systolic function is normal. LVEF is 55-60%. Left atrium is mildly dilated. Right atrium is mildly dilated. Trace aortic regurgitation. Trace mitral regurgitation. Mild tricuspid regurgitation. No pulmonary hypertension. IVC is normal in size and collapses >50% with inspiration. <ELECTRONICALLY SIGNED> By: Jerel Serrano MD, FACC 04/14/21 1205 Jerel Serrano MD, FACC /INF
--- NOTE | 2021-04-14 13:42 | EKG ---
[place] [address] ELECTROCARDIOGRAM REPORT Name: TRISTAN INGRAM Room: [address] M.R.#: [id number] Admission: 04/13/21 Attend Phys: Helio Jones MD Discharge: Date of : 64 Date of Service: 04/14/21 1245 Report #: [id number] THIS REPORT FOR: //name// [facility] Test Date: 2021-04-14 Test Time: 12:45:14 Pat Name: TRISTAN INGRAM Department: Room: [address] Gender: M Parts Cataloger: : 1960 Requested By: Helio Jones Order Number: [id number] Иван MD: Helio Jones Measurements Intervals [place] Rate: 67 P: 30 MD: 140 QRS: 13 QRSD: 111 T: 52 QT: 421 QTc: 445 Interpretive Statements Sinus rhythm Compared to ECG 04/13/2021 15:51:18 Sinus bradycardia no longer present Electronically Signed On 04-14-2021 13:42:43 [employer] by Helio Jones [email or web address] <ELECTRONICALLY SIGNED> By: Helio Jones MD, [facility] 04/14/21 1342 1245 1245 Helio Jones MD, [facility] /EPI
[2021-04-14 14:19] VITALS: BP 150/92
--- NOTE | 2021-04-14 15:02 | NUR ---
Reviewed discharge teaching with patient and ; verbalizes understanding. IV and property assessment monitor dc'd. Discharged from unit per WC.
--- NOTE | 2021-04-16 14:10 | D ---
[address] [address] DISCHARGE SUMMARY Name: TRISTAN INGRAM Room: [address] Kelly Garcia#: [id number] Admission: 04/13/21 Attend Phys: Helio Jones MD, F Discharge: 04/14/21 Date of : 64 Report #: [id number] THIS REPORT FOR: cc: Tarah Shetty,Helio Leyva MD [facility] ~ cc: Tarah Shetty DATE OF DISCHARGE: 04/14/2021 DISCHARGE DIAGNOSES: 1. Angina pectoris. 2. Coronary artery disease. 3. Hypertension. 4. Hyperlipidemia. CONSULTANTS: None. PROCEDURE: Placement of 2 drug-eluting stents in the left anterior descending artery via the femoral approach. HISTORY OF PRESENT ILLNESS: The patient is a 61-year-old single white male who was brought to the outpatient department to undergo repeat cardiac catheterization. The patient has a long history of hypertension. He stays active, working [employer]. He presented in 06/2020 with a non-STEMI. Cardiac catheterization showed chronic occlusion of the LAD and high-grade stenosis in the circumflex artery. Ejection fraction 45%. I then placed a single drug-eluting stent in the circumflex artery. He was placed on Effient. Recently, he is having chest tightness with exertion that is relieved with rest. He does get short of breath. Denies syncope or bleeding. I saw him in the office on 04/05 and recommended repeat cardiac catheterization. This was performed as an outpatient on 04/13. I attempted it from the right radial artery, but was unable to place a sheath in the radial artery. I therefore attempted from the right femoral artery. No ventriculogram was performed. The LAD again appeared to be chronically occluded. Stent to circumflex had no restenosis. The right coronary artery had 50% proximal stenosis. I then attempted stenting of the chronically occluded circumflex artery. He was given heparin. The patient had been on Effient and aspirin. I was unable to pass a BMW wire across the chronic occlusion. I then attempted reperfusion using a ChoICE PT extra support coated guidewire. This wire was able to be advanced across the total occlusion up to the distal LAD. However, an arteriogram showed what appeared to be contrast escaping the distal LAD consistent with a coronary artery dissection. The flow did not appear to be going into the pericardial sac rather into ventricular chamber most likely the left ventricle. The patient was given protamine to reverse the heparin. He did note some chest pain, but there was no drop in blood pressure, ECG changes. [place] [address] DISCHARGE SUMMARY Name: TRISTAN INGRAM Room: [address] Kelly Garcia#: [id number] Admission: 04/13/21 Attend Phys: Helio Jones MD, F Discharge: 04/14/21 Date of : 64 Report #: [id number] angioplasty of the chronic occlusion over the ChoICE wire with reperfusion of the LAD. I inserted the balloon to the area of dissection and performed prolonged balloon inflations. Despite reversing the heparin and prolonged balloon inflations, the dissection persisted with flow appearing to go from the coronary artery into the ventricular chamber. Again, vital signs and blood pressure remained stable. I attempted to place a coated stent to the area of dissection, which was a Biotronik stent. However, because of the disease in the LAD, I was unable to advance the stent. I was able to advance a drug coated 2.0 mm Medtronic stent to the area of dissection. I placed 2 of these drug-eluting Medtronic stents to this area of stenosis at low inflation. After placing these stents, the size of dissection was markedly decreased. A stat echocardiogram in the catheterization table showed no effusion and normal ventricular function. It was decided to abandon further attempts. The sheath was removed and Angio-Seal was placed in the right femoral artery. The patient was transferred to a monitored bed, remained stable overnight. The following day, he did have no chest pain, shortness of breath, lightheadedness, or arrhythmias. It was decided to discharge the patient at this time. The results were discussed with the patient. He was felt to have no restenosis of stent in the circumflex. He did have a chronically occluded LAD and had suffered a dissection while attempting angioplasty of the chronic occlusion that appeared to be sealed with 2 drug-eluting stents. Prior to discharge, repeat echocardiogram again showed no significant effusion. At the time of discharge, the patient was ambulating, had no further complaints. He was discharged on his home medications including aspirin 81 mg a day; Lipitor, he can only take a half a tablet a day because of myalgias; carvedilol 3.125 mg twice a day; Effient 10 mg a day and his quinapril was increased to 5 mg a day. At the time of discharge, the patient had a blood pressure of 130/80 and pulse of 60. He was afebrile. Follow up lab work included creatinine 1.0. His liver function studies were normal. High sensitivity troponin did increase to 2513, although there was no ECG changes. Cholesterol 131, triglyceride 46, HDL 48, and LDL 74. Followup hematocrit was 38.6. The patient was discharged to return to the care of Dr. Shetty for routine medical care. I plan on seeing the Cardiology Clinic in 6 weeks for followup. The patient did have nitroglycerin take as needed for chest pain. He was given a release to return to work next week. Echocardiogram actually showed preserved left ventricular function with an estimated ejection fraction of 50%. His prognosis is guarded due to his diffuse coronary artery disease. <ELECTRONICALLY SIGNED> By: Helio Jones MD, FACC 04/16/21 1410 0915 [id number] Jones MD, FACC /nt
== END 2021-04-14 14:50 | disposition home or self-care (01) ==
LOC: M.CL 09:39 → M.TBA-CV 12:55 → M.2W 17:48
PROVIDERS: ADMIT Internal Medicine Cardiovascular Disease; ATTEND Internal Medicine Cardiovascular Disease
DX: I25.119 Atherosclerotic heart disease of native coronary artery with unspecified angina pectoris (principal); I10 Essential (primary) hypertension; E78.5 Hyperlipidemia, unspecified; Z20.822 Contact with and (suspected) exposure to COVID-19; Z79.899 Other long term (current) drug therapy; Z79.01 Long term (current) use of anticoagulants